=== PATIENT | male | born 1975 | race Caucasian/White ===

== ENCOUNTER 2017-08-10 07:34 | Emergency (ER) | payer SELFPAY ==
[~2017-08-10] VITALS: Ht 182.9 cm; Wt 120.0 kg
[2017-08-10 07:37] VITALS: BP 173/95; TEMP 97.7
[2017-08-10] MEDS ORDERED: PROAIR HFA0.09 MG/AC IH (08:48)
[2017-08-10] MEDS ORDERED: ZITHROMAX Z PA250 MG PO (08:48)
[2017-08-10 08:57] VITALS: PULSE 98
== END 2017-08-10 08:57 | disposition home or self-care (01) ==
LOC: COL.ER 07:34
DX: J40 Bronchitis, not specified as acute or chronic (principal)